=== PATIENT | female | born 1975 | race Two or more races ===

== ENCOUNTER → 2017-02-02 | Outpatient (CLI) | payer BC ==
[2017-02-02 09:10] LABS: BASOPHILS % 1.2 % (0.0-2.0); EOSINOPHILS % 2.3 % (0.0-5.0); HEMATOCRIT. 30.6 % (36.0-48.0); HEMOGLOBIN. 9.4 g/dL (12.0-16.0); LYMPHOCYTES % 30.6 % (20.0-50.0); MEAN CORPUSCULAR HEMOGLOBIN 19.4 pg (28.0-32.0); MEAN CORPUSCULAR VOLUME 63.1 fL (81.0-99.0); NEUTROPHILS % 59.9 % (40.0-76.0); PLATELET 367 x1000/uL (130-400); RED BLOOD CELL COUNT 4.85 mill/uL (4.2-5.4); RED CELL DISTRIBUTION WIDTH 19.6 % (11.6-14.6)
[2017-02-02 10:43] LABS: CARBON DIOXIDE 26 mEq/L (21-32); CHLORIDE 108 mEq/L (98-107); HDL CHOLESTEROL 35 mg/dL (40-59); LDL CHOLESTEROL 109 mg/dL (5-100); TOTAL IRON BINDING CAPACITY 529 ug/dL (250-450)
[2017-02-02 11:03] LABS: VITAMIN B12 SERUM 865 pg/mL (211-911)
[2017-02-02 11:28] LABS: FERRITIN 7 ng/mL (10-291)
[2017-02-02 17:16] LABS: PLATELET ESTIMATE NORMAL
== END | disposition home or self-care (01) ==
LOC: LAB 08:31
PROVIDERS: ATTEND Family Medicine
DX: D53.9 Nutritional anemia, unspecified (principal)
CPT/HCPCS: 36415; 80053; 80061; 82607; 82728; 83540; 83550; 84443; 85025

== ENCOUNTER → 2017-02-05 | Outpatient (CLI) | payer BC | END | disposition home or self-care (01) | LOC: US 09:06 | PROVIDERS: ATTEND Family Medicine | DX: D25.9 Leiomyoma of uterus, unspecified (principal); N92.0 Excessive and frequent menstruation with regular cycle | CPT/HCPCS: 76830; 76856 ==

== ENCOUNTER → 2017-02-23 | Outpatient (CLI) | payer BC ==
[2017-02-23 09:36] LABS: BASOPHILS % 0.6 % (0.0-2.0); HEMATOCRIT. 32.2 % (36.0-48.0); HEMOGLOBIN. 9.7 g/dL (12.0-16.0); LYMPHOCYTES % 20.7 % (20.0-50.0); MEAN CORPUSCULAR HEMOGLOBIN 18.9 pg (28.0-32.0); MEAN CORPUSCULAR VOLUME 62.9 fL (81.0-99.0); MEAN PLATELET VOLUME 8.4 fl (7.4-10.4); MONOCYTES % 4.8 % (2.0-8.0); NEUTROPHILS % 72.9 % (40.0-76.0); PLATELET 291 x1000/uL (130-400); RED BLOOD CELL COUNT 5.11 mill/uL (4.2-5.4); RED CELL DISTRIBUTION WIDTH 20.7 % (11.6-14.6)
[2017-02-23 09:39] LABS: CLARITY URINE CLEAR (CLEAR); COLOR URINE YELLOW (YELLOW); KETONES URINE NEGATIVE (NEGATIVE); LEUKOCYTE ESTERASE URINE TRACE (NEGATIVE); NITRITE URINE NEGATIVE (NEGATIVE); OCCULT BLOOD URINE 3+ (NEGATIVE); PH URINE 7.5 (4.5-8.0); PROTEIN URINE NEGATIVE (NEGATIVE); SPECIFIC GRAVITY URINE 1.009 (1.005-1.030); UROBILINOGEN URINE 0.2 E.U./dL (0.2-1.0)
[2017-02-23 09:46] LABS: PARTIAL THROMBOPLASTIN TIME 28.1 sec (23.4-31.0); PROTHROMBIN TIME 10.8 sec (9.4-11.6)
[2017-02-23 09:57] LABS: HCG SCREEN NEGATIVE
[2017-02-23 10:05] LABS: CARBON DIOXIDE 26 mEq/L (21-32); CHLORIDE 106 mEq/L (98-107)
[2017-02-23 13:53] LABS: PLATELET ESTIMATE NORMAL
== END | disposition home or self-care (01) ==
LOC: LAB 08:29
DX: Z01.818 Encounter for other preprocedural examination (principal); Z90.710 Acquired absence of both cervix and uterus
CPT/HCPCS: 36415; 80053; 81001; 84703; 85025; 85610; 85730; 87086

== ENCOUNTER → 2017-02-24 | Outpatient (CLI) | payer BC | END | disposition home or self-care (01) | LOC: LAB 09:00 | DX: Z01.818 Encounter for other preprocedural examination (principal); D25.9 Leiomyoma of uterus, unspecified | CPT/HCPCS: 71045; 93005 ==

== ENCOUNTER → 2017-03-30 | Outpatient (CLI) | payer BC ==
[2017-03-30 09:32] LABS: BASOPHILS % 0.7 % (0.0-2.0); EOSINOPHILS % 1.7 % (0.0-5.0); HEMOGLOBIN. 10.6 g/dL (12.0-16.0); INR 1.1; MEAN CORPUSCULAR HEMOGLOBIN 20.8 pg (28.0-32.0); MEAN CORPUSCULAR VOLUME 68.5 fL (81.0-99.0); MEAN PLATELET VOLUME 8.5 fl (7.4-10.4); MONOCYTES % 5.2 % (2.0-8.0); NEUTROPHILS % 64.4 % (40.0-76.0); PARTIAL THROMBOPLASTIN TIME 30.1 sec (23.4-31.0); PLATELET 219 x1000/uL (130-400); PROTHROMBIN TIME 11.3 sec (9.4-11.6); RED BLOOD CELL COUNT 5.12 mill/uL (4.2-5.4); RED CELL DISTRIBUTION WIDTH 24.9 % (11.6-14.6)
[2017-03-30 09:42] LABS: CLARITY URINE CLEAR (CLEAR); COLOR URINE YELLOW (YELLOW); KETONES URINE NEGATIVE (NEGATIVE); LEUKOCYTE ESTERASE URINE NEGATIVE (NEGATIVE); NITRITE URINE NEGATIVE (NEGATIVE); OCCULT BLOOD URINE 1+ (NEGATIVE); PH URINE 6.5 (4.5-8.0); PROTEIN URINE NEGATIVE (NEGATIVE); SPECIFIC GRAVITY URINE 1.008 (1.005-1.030); UROBILINOGEN URINE 0.2 E.U./dL (0.2-1.0)
[2017-03-30 09:59] LABS: CHLORIDE 109 mEq/L (98-107)
[2017-03-30 10:14] LABS: HCG SCREEN NEGATIVE
[2017-03-30 14:00] LABS: PLATELET ESTIMATE NORMAL
== END | disposition home or self-care (01) ==
LOC: LAB 08:57
DX: D25.9 Leiomyoma of uterus, unspecified (principal); R79.89 Other specified abnormal findings of blood chemistry
CPT/HCPCS: 36415; 84703

== ENCOUNTER → 2017-05-18 | Outpatient (CLI) | payer BC ==
[2017-05-18 12:07] LABS: BASOPHILS % 0.9 % (0.0-2.0); EOSINOPHILS % 2.9 % (0.0-5.0); HEMATOCRIT. 41.9 % (36.0-48.0); HEMOGLOBIN. 13.7 g/dL (12.0-16.0); LYMPHOCYTES % 33.8 % (20.0-50.0); MEAN CORPUSCULAR HEMOGLOBIN 25.6 pg (28.0-32.0); MEAN PLATELET VOLUME 7.5 fl (7.4-10.4); MONOCYTES % 3.7 % (2.0-8.0); NEUTROPHILS % 58.7 % (40.0-76.0); PLATELET 200 x1000/uL (130-400); RED BLOOD CELL COUNT 5.37 mill/uL (4.2-5.4); RED CELL DISTRIBUTION WIDTH 27.5 % (11.6-14.6)
[2017-05-18 13:28] LABS: PLATELET ESTIMATE NORMAL
== END | disposition home or self-care (01) ==
LOC: LAB 11:30
PROVIDERS: ATTEND Internal Medicine Hematology & Oncology
DX: D50.0 Iron deficiency anemia secondary to blood loss (chronic) (principal)
CPT/HCPCS: 36415; 82728; 85025

== ENCOUNTER → 2017-06-22 | Outpatient (CLI) | payer BC ==
[2017-06-22 11:21] LABS: BASOPHILS % 0.9 % (0.0-2.0); EOSINOPHILS % 2.8 % (0.0-5.0); HEMATOCRIT. 45.4 % (36.0-48.0); HEMOGLOBIN. 15.4 g/dL (12.0-16.0); LYMPHOCYTES % 32.5 % (20.0-50.0); MEAN CORPUSCULAR HEMOGLOBIN 28.4 pg (28.0-32.0); MEAN CORPUSCULAR VOLUME 83.6 fL (81.0-99.0); MEAN PLATELET VOLUME 7.2 fl (7.4-10.4); MONOCYTES % 4.6 % (2.0-8.0); NEUTROPHILS % 59.2 % (40.0-76.0); PLATELET 223 x1000/uL (130-400); RED BLOOD CELL COUNT 5.43 mill/uL (4.2-5.4); RED CELL DISTRIBUTION WIDTH 22.8 % (11.6-14.6)
[2017-06-22 11:54] LABS: CLARITY URINE CLEAR (CLEAR); COLOR URINE YELLOW (YELLOW); KETONES URINE NEGATIVE (NEGATIVE); LEUKOCYTE ESTERASE URINE NEGATIVE (NEGATIVE); NITRITE URINE NEGATIVE (NEGATIVE); OCCULT BLOOD URINE 2+ (NEGATIVE); PROTEIN URINE NEGATIVE (NEGATIVE); SPECIFIC GRAVITY URINE 1.014 (1.005-1.030); UROBILINOGEN URINE 0.2 E.U./dL (0.2-1.0)
[2017-06-22 12:44] LABS: PLATELET ESTIMATE NORMAL
== END | disposition home or self-care (01) ==
LOC: LAB 10:52
PROVIDERS: ATTEND Internal Medicine Hematology & Oncology
DX: N39.0 Urinary tract infection, site not specified (principal); D50.0 Iron deficiency anemia secondary to blood loss (chronic)
CPT/HCPCS: 36415; 81003; 82728; 85025; 87086

== ENCOUNTER → 2017-07-28 | Outpatient (CLI) | payer BC ==
[2017-07-28 08:42] LABS: BASOPHILS % 1.3 % (0.0-2.0); EOSINOPHILS % 3.5 % (0.0-5.0); HEMATOCRIT. 45.5 % (36.0-48.0); HEMOGLOBIN. 15.6 g/dL (12.0-16.0); LYMPHOCYTES % 30.5 % (20.0-50.0); MEAN CORPUSCULAR HEMOGLOBIN 30.4 pg (28.0-32.0); MEAN CORPUSCULAR VOLUME 88.9 fL (81.0-99.0); MEAN PLATELET VOLUME 7.3 fl (7.4-10.4); MONOCYTES % 5.7 % (2.0-8.0); PLATELET 204 x1000/uL (130-400); RED BLOOD CELL COUNT 5.12 mill/uL (4.2-5.4)
== END | disposition home or self-care (01) ==
LOC: LAB 07:54
PROVIDERS: ATTEND Internal Medicine Hematology & Oncology
DX: D50.0 Iron deficiency anemia secondary to blood loss (chronic) (principal)
CPT/HCPCS: 36415; 82728; 85025

== ENCOUNTER → 2017-10-27 | Outpatient (CLI) | payer BC ==
[2017-10-27 09:41] LABS: CLARITY URINE CLEAR (CLEAR); COLOR URINE YELLOW (YELLOW); KETONES URINE NEGATIVE (NEGATIVE); LEUKOCYTE ESTERASE URINE 1+ (NEGATIVE); NITRITE URINE NEGATIVE (NEGATIVE); OCCULT BLOOD URINE 2+ (NEGATIVE); PROTEIN URINE NEGATIVE (NEGATIVE); SPECIFIC GRAVITY URINE 1.003 (1.005-1.030); UROBILINOGEN URINE 0.2 E.U./dL (0.2-1.0)
== END | disposition home or self-care (01) ==
LOC: MAMMO 08:07
DX: Z12.31 Encounter for screening mammogram for malignant neoplasm of breast (principal); R92.1 Mammographic calcification found on diagnostic imaging of breast
CPT/HCPCS: 77067; 81003; 87086

== ENCOUNTER → 2018-08-10 | Outpatient (CLI) | payer BC ==
[2018-08-10 11:01] LABS: BASOPHILS % 0.5 % (0.0-2.0); EOSINOPHILS % 1.9 % (0.0-5.0); HEMATOCRIT. 45.6 % (36.0-48.0); HEMOGLOBIN. 15.5 g/dL (12.0-16.0); LYMPHOCYTES % 37.8 % (20.0-50.0); MEAN CORPUSCULAR VOLUME 90.9 fL (81.0-99.0); MEAN PLATELET VOLUME 8.3 fl (7.4-10.4); MONOCYTES % 5.3 % (2.0-8.0); NEUTROPHILS % 54.5 % (40.0-76.0); PLATELET 205 x1000/uL (130-400); RED BLOOD CELL COUNT 5.01 mill/uL (4.2-5.4); RED CELL DISTRIBUTION WIDTH 13.5 % (11.6-14.6)
== END | disposition home or self-care (01) ==
LOC: LAB 08:19
PROVIDERS: ATTEND Internal Medicine Hematology & Oncology
DX: D50.0 Iron deficiency anemia secondary to blood loss (chronic) (principal)
CPT/HCPCS: 36415; 82728

== ENCOUNTER → 2019-02-16 | Outpatient (CLI) | payer BC | END | disposition home or self-care (01) | LOC: MAMMO 08:17 | PROVIDERS: ATTEND Family Medicine | DX: Z12.31 Encounter for screening mammogram for malignant neoplasm of breast (principal) | CPT/HCPCS: 77067 ==

== ENCOUNTER → 2020-04-08 | Outpatient (CLI) | payer BC | END | disposition home or self-care (01) | LOC: LAB 10:28 | PROVIDERS: ATTEND Family Medicine | DX: Z01.812 Encounter for preprocedural laboratory examination (principal); Z20.822 Contact with and (suspected) exposure to COVID-19 | CPT/HCPCS: 87426 ==

== ENCOUNTER → 2020-04-09 | Outpatient (CLI) | payer BC | END | disposition home or self-care (01) | LOC: MAMMO 09:37 | PROVIDERS: ATTEND Family Medicine | DX: Z12.31 Encounter for screening mammogram for malignant neoplasm of breast (principal); N64.89 Other specified disorders of breast | CPT/HCPCS: 77067 ==

== ENCOUNTER → 2020-04-15 | Outpatient (CLI) | payer BC | END | disposition home or self-care (01) | LOC: LAB 07:49 | PROVIDERS: ATTEND Family Medicine | DX: Z11.52 Encounter for screening for COVID-19 (principal); Z20.822 Contact with and (suspected) exposure to COVID-19 | CPT/HCPCS: 87426 ==

== ENCOUNTER → 2020-04-16 | Outpatient (CLI) | payer BC | END | disposition home or self-care (01) | LOC: RAD 07:56 | PROVIDERS: ATTEND Family Medicine | DX: N63.20 Unspecified lump in the left breast, unspecified quadrant (principal); N65.1 Disproportion of reconstructed breast | CPT/HCPCS: 76641; 77065 ==

== ENCOUNTER → 2020-04-22 | Outpatient (CLI) | payer BC | END | disposition home or self-care (01) | LOC: LAB 11:13 | PROVIDERS: ATTEND Family Medicine | DX: Z01.812 Encounter for preprocedural laboratory examination (principal); Z20.822 Contact with and (suspected) exposure to COVID-19 | CPT/HCPCS: 87426 ==

== ENCOUNTER → 2020-04-23 | Day surgery (SDC) | payer BC ==
[~2020-04-23] MED LIST: LIDOCAINE HCL/EPINEPHRINE 1%-EPI 1:100,000 20 ML VIAL ONE; SODIUM BICARBONATE 4% (2.4MEQ) 5ML VIAL IV ONE
== END | disposition home or self-care (01) ==
LOC: RAD 10:18
PROVIDERS: ATTEND Family Medicine
DX: N63.24 Unspecified lump in the left breast, lower inner quadrant (principal); R92.8 Other abnormal and inconclusive findings on diagnostic imaging of breast; Z79.899 Other long term (current) drug therapy
CPT/HCPCS: 19083; 88305; A4648; J3490

== ENCOUNTER 2020-09-17 11:40 | Emergency (ER) | payer BC ==
[~2020-09-17] VITALS: Ht 165.1 cm; Wt 50.0 kg
[2020-09-17] MEDS ORDERED: SODIUM CHLORIDE 0.9% 1,000 ML IV ONE (13:00)
[2020-09-17 13:55] LABS: BASOPHILS % 0.4 % (0.0-2.0); EOSINOPHILS % 1.5 % (0.0-5.0); HEMOGLOBIN. 16.2 g/dL (12.0-16.0); MEAN CORPUSCULAR HEMOGLOBIN 30.7 pg (28.0-32.0); MEAN PLATELET VOLUME 7.7 fl (7.4-10.4); MONOCYTES % 5.6 % (2.0-8.0); NEUTROPHILS % 61.5 % (40.0-76.0); PLATELET 210 x1000/uL (130-400); RED BLOOD CELL COUNT 5.28 mill/uL (4.2-5.4); RED CELL DISTRIBUTION WIDTH 13.3 % (11.6-14.6)
[2020-09-17 13:57] LABS: CHLORIDE 107 mEq/L (98-107)
[2020-09-17 14:03] LABS: CLARITY URINE CLEAR (CLEAR); COLOR URINE YELLOW (YELLOW); KETONES URINE NEGATIVE (NEGATIVE); LEUKOCYTE ESTERASE URINE NEGATIVE (NEGATIVE); NITRITE URINE NEGATIVE (NEGATIVE); OCCULT BLOOD URINE NEGATIVE (NEGATIVE); PROTEIN URINE NEGATIVE (NEGATIVE); SPECIFIC GRAVITY URINE 1.007 (1.005-1.030); UROBILINOGEN URINE 0.2 E.U./dL (0.2-1.0)
[2020-09-17] MEDS ORDERED: KETOROLAC 15MG/ML VIAL IV ONE (15:45)
[2020-09-17 16:14] VITALS: BP 144/87
== END 2020-09-17 16:18 | disposition home or self-care (01) ==
LOC: ER 11:40
DX: R55 Syncope and collapse (principal); Z88.5 Allergy status to narcotic agent; Z98.890 Other specified postprocedural states; Z90.710 Acquired absence of both cervix and uterus
CPT/HCPCS: 36415; 70450; 80053; 81003; 81025; 85025; 93005; 96360; 96361; 99285; J7030

== ENCOUNTER 2021-02-04 14:44 | Emergency (ER) | payer BC ==
[~2021-02-04] VITALS: Ht 165.1 cm; Wt 55.0 kg
[2021-02-04 15:54] VITALS: BP 141/91
[2021-02-04] MEDS ORDERED: IBUPROFEN 600MG TABLET PO STA (15:59)
[2021-02-04] MEDS ORDERED: NAPR-681 PO (17:44)
== END 2021-02-04 18:32 | disposition home or self-care (01) ==
LOC: ER 14:44
DX: S80.02XA Contusion of left knee, initial encounter (principal); S60.011A Contusion of right thumb without damage to nail, initial encounter; Z90.710 Acquired absence of both cervix and uterus; Z98.890 Other specified postprocedural states; Z88.6 Allergy status to analgesic agent; W18.39XA Other fall on same level, initial encounter; Y93.89 Activity, other specified; Y92.89 Other specified places as the place of occurrence of the external cause; Y99.8 Other external cause status
CPT/HCPCS: 73140; 73562; 99284

== ENCOUNTER 2022-07-16 14:08 | Emergency (ER) | payer BC ==
[~2022-07-16] VITALS: Ht 162.6 cm; Wt 51.0 kg
[~2022-07-16 14:08] MED LIST changes: -LIDOCAINE HCL/EPINEPHRINE 1%-EPI 1:100,000 20 ML VIAL ONE; +NAPR-681 PO; -SODIUM BICARBONATE 4% (2.4MEQ) 5ML VIAL IV ONE
[2022-07-16 14:41] LABS: BASOPHILS % 0.5 % (0.0-2.0); EOSINOPHILS % 1.7 % (0.0-5.0); HEMATOCRIT. 44.2 % (36.0-48.0); HEMOGLOBIN. 15.4 g/dL (12.0-16.0); LYMPHOCYTES % 33.6 % (20.0-50.0); MEAN CORPUSCULAR HEMOGLOBIN 31.4 pg (28.0-32.0); MEAN CORPUSCULAR VOLUME 90.2 fL (81.0-99.0); MEAN PLATELET VOLUME 7.9 fl (7.4-10.4); MONOCYTES % 6.2 % (2.0-8.0); PLATELET 225 x1000/uL (130-400); RED CELL DISTRIBUTION WIDTH 13.5 % (11.6-14.6)
[2022-07-16 14:48] LABS: CHLORIDE 105 mEq/L (98-107)
[2022-07-16] MEDS ORDERED: ACETAMINOPHEN 325MG TABLET PO ONE (15:15)
[2022-07-16] MEDS ORDERED: SODIUM CHLORIDE 0.9% 1,000 ML IV ONE (15:15)
[2022-07-16] MEDS ORDERED: METOCLOPRAMIDE HCL 10MG/2ML VIAL IV ONE (15:15)
[2022-07-16 15:17] LABS: HCG SCREEN NEGATIVE
[2022-07-16] MEDS ORDERED: KETOROLAC 30MG/ML VIAL IV ONE (15:45)
[2022-07-16] MEDS ORDERED: POTASSIUM CHLORIDE 20MEQ/PACKET PO NR (16:00)
[2022-07-16 18:53] VITALS: BP 140/85
== END 2022-07-16 18:57 | disposition home or self-care (01) ==
LOC: ER 14:08
DX: R51.9 Headache, unspecified (principal); I10 Essential (primary) hypertension; Z90.710 Acquired absence of both cervix and uterus; Z90.49 Acquired absence of other specified parts of digestive tract
CPT/HCPCS: 36415; 70450; 80053; 84484; 84703; 85025; 93005; 96361; 96374; 96375; 99285; J1885; J2765; J7030; Z7610

== ENCOUNTER → 2022-09-14 | Outpatient (CLI) | payer BC ==
[2022-09-14 15:09] LABS: CHLORIDE 104 mEq/L (98-107); INDEX HEMOLYSI 1 (1-3); INDEX ICTERIC 1 (1-4); INDEX LIPEMIC 1 (1-3); POTASSIUM 3.5 mEq/L (3.5-5.1); SODIUM 136 mEq/L (136-145)
[2022-09-14 15:20] LABS: ALANINE AMINOTRANSFERASE 35 IU/L (13-61); ALBUMIN 4.1 g/dL (3.4-5.0); ASPARTATE AMINOTRANSFERASE 19 IU/L (15-37); BILIRUBIN DIRECT 0.1 mg/dL (0.0-0.2); BILIRUBIN TOTAL 0.7 mg/dL (0.1-1.0); CALCIUM 9.3 mg/dL (8.5-10.1); CARBON DIOXIDE 28 mEq/L (21-32); CREATININE 0.8 mg/dL (0.6-1.3); GLUCOSE 104 mg/dL (70-105); PROTEIN TOTAL 7.8 g/dL (6.0-8.3); UREA NITROGEN BLOOD 18 mg/dL (7-21)
== END | disposition home or self-care (01) ==
LOC: LAB 14:20
PROVIDERS: ATTEND Psychiatry & Neurology Neurology
DX: I10 Essential (primary) hypertension (principal); G43.909 Migraine, unspecified, not intractable, without status migrainosus
CPT/HCPCS: 36415; 80048; 80076

== ENCOUNTER → 2022-09-18 | Outpatient (CLI) | payer BC ==
[~2022-09-18] MED LIST changes: +IOHEXOL-350 100 ML BOTTLE ONE
== END | disposition home or self-care (01) ==
LOC: CT 07:32
PROVIDERS: ATTEND Psychiatry & Neurology Neurology
DX: R51.9 Headache, unspecified (principal)
CPT/HCPCS: 70496; 70498; Q9967; Z7610

== ENCOUNTER → 2023-03-25 | Outpatient (CLI) | payer BC ==
[~2023-03-25] MED LIST changes: -IOHEXOL-350 100 ML BOTTLE ONE
[2023-03-25 08:52] LABS: T4 FREE 1.26 ng/dL (0.89-1.76); THYROID STIMULATING HORMONE 1.55 uIU/mL (0.55-4.78)
[2023-03-26 09:11] LABS: ANTI-NUCLEAR ANTIBODIES DIRECT Negative (Negative); TRIIODOTHYRONINE 97 ng/dL (71-180)
[2023-03-27 19:09] LABS: ANTI-CARDIOLIPIN AB IGG < 9 GPL U/mL (0-14)
== END | disposition home or self-care (01) ==
LOC: LAB 07:46
PROVIDERS: ATTEND Internal Medicine Critical Care Medicine
DX: I10 Essential (primary) hypertension (principal); R01.1 Cardiac murmur, unspecified; I27.21 Secondary pulmonary arterial hypertension
CPT/HCPCS: 36415; 82164; 84439; 84443; 84480; 86038; 86147; 86430

== ENCOUNTER → 2023-04-01 | Outpatient (CLI) | payer BC | END | disposition home or self-care (01) | LOC: RAD 13:19 | PROVIDERS: ATTEND Family Medicine | DX: R07.81 Pleurodynia (principal); N64.4 Mastodynia | CPT/HCPCS: 71100 ==